=== PATIENT | male | born 2000 | race Caucasian/White ===

== ENCOUNTER 2020-05-24 03:34 | Emergency (ER) | payer SELFPAY ==
[~2020-05-24] VITALS: Ht 162.6 cm; Wt 61.2 kg
[2020-05-24 03:36] VITALS: BP 151/92; Ht 162.6 cm; Wt 61.2 kg
== END 2020-05-24 05:05 | disposition left against medical advice (07) ==
LOC: ED 03:34
DX: Z53.21 Procedure and treatment not carried out due to patient leaving prior to being seen by health care provider (principal)